=== PATIENT | male | born 1980 | race Caucasian/White ===

== ENCOUNTER 2023-05-20 00:55 | Day surgery (SDC) | payer OTHER, SELFPAY ==
--- NOTE | 2023-05-18 10:28 | SUR.PREOP ---
Patient called regarding upcoming procedure. Reviewed preop instructions, appointment times, and procedure prep.
[2023-05-20 06:33] VITALS: BP 133/95; PULSE 93; RESP 16; TEMP 36.9; O2SAT 97; BMI 30.8
[2023-05-20] MEDS: LACTATED RINGERS 1,000 ML 150 ML IV CONT (06:45)
--- NOTE | 2023-05-20 07:26 | WPDANESEPPF ---
Anes - Initial Pre Proc Eval Procedure: Operation Date: 05/20/23 07:30 Proposed Procedures p Screening Colonoscopy - Jose Vallecillo MD Date/Time: 05/20/23 07:26 Surgeon: Jose Vallecillo MD Pre Op Diagnosis: neoplasm screening Patient Data Age: 43 Gender: M Height: 1.91 m Weight: 112 kg Last Vital Signs Temp 98.5 F 05/20/23 06:33 Pulse 93 05/20/23 06:33 Resp 16 05/20/23 06:33 BP 133/95 H 05/20/23 06:33 Pulse Ox 97 05/20/23 06:33 O2 Del Method Room Air 05/20/23 06:33 Allergies Allergy/AdvReac Type Severity Reaction Status Date / Time No Known Allergies Allergy Verified 05/20/23 06:21 Home Medications Medication Instructions Recorded Confirmed Type omeprazole 20 mg capsule,delayed 20 mg PO BID 04/26/19 05/20/23 History release cholecalciferol (vitamin D3) 50 50 mcg PO DAILY 03/14/22 05/20/23 History mcg (2,000 unit) capsule losartan 50 mg tablet 50 mg PO DAILY #90 tabs 04/13/23 05/20/23 Rx loratadine-pseudoephedrine ER 10 1 tablet PO DAILY #90 tabs 05/19/23 05/20/23 Rx mg-240 mg tablet,extended [id number] (Loratadine-D) Patient hx anesthesia problems: none Family hx anesthesia problems: none Results Review: All pre-operative results and documents have been reviewed as part of the pre-operative evaluation. [facility] Past Medical History Medical History Broken wrist left Headache History of broken finger Pilonidal cyst Surgical History Surgical History History of surgical removal of pilonidal cyst Family History Family History Mother Family history of elevated blood lipids Hypertension Heart disease Other Family history of allergic disorder Social History Social History Smoking packs per day: 1 Smoking cigarettes per day: 20.0 Years smoked: 12.5 Smoking pack-years: 12.50 Smoking status: Former smoker Tobacco type: cigarettes Smoking end date: 06/15/01 Alcohol intake: current Alcohol use details: rare occasional Substance use: never Substance use type: does not use Lack of Transportation: No Lack of Food: Never True Current Housing: I Have Housing Concerned About Future Housing: No Difficulty Paying Gas/Electric Bills: No Difficulty Paying for Meds: No Currently Unemployed: No Education: Bachelor's Degree Difficulty w/ Childcare or Family Care: No Living arrangements: with family Spiritual care concerns: No Anes - Eval Final PreProcedure Day of Procedure 05/20/23 07:26 Patient weight: obese Heart: regular rate and rhythm Lungs: clear to auscultation Airway: Mallampati scale class II Neurological: alert and oriented Last oral intake: >/= 8 hours ASA classification: II Emergent: no Anesthetic plan: proceed Anesthesia type and monitoring: general GIVS and standard monitoring Results Review: All pre-operative results and documents have been reviewed as part of the pre-operative evaluation. Informed Consent: The patient's anesthetic plan and its attendant risks and benefits were discussed with the patient/family/POA. Questions were solicited and answers provided to the satisfaction of the patient/family/POA.
--- NOTE | 2023-05-20 08:02 | PM.HPGS ---
History of Present Illness History of Present Illness Consent: Risks, benefits, and alternatives have been discussed and questions answered. Patient agrees to proceed with procedure. Chief complaint: neoplasm screening Narrative: Aba Barraza is a 43 year old male here for first screening colonoscopy Review of Systems Constitutional: Constitutional: Denies headache(s) and Denies weakness Eyes: Eyes: Denies blurry vision ENT: Reports Normal hearing present, Denies headache(s) and Denies neck pain Cardiovascular: Cardiovascular: Denies chest pain and Denies dyspnea Respiratory: Respiratory: Denies dyspnea Gastrointestinal: Gastrointestinal: Reports no additional gastrointestinal complaints Genitourinary: Genitourinary: Denies dysuria Musculoskeletal: Musculoskeletal: Denies neck pain Integumentary/Breasts: Skin/Breast: Denies dry skin Neurologic: Reports Normal hearing present, Denies headache(s) and Denies weakness Psychiatric: Psychiatric: Denies anxiety Endocrine: Endocrine: Denies change in body appearance Hematologic/Lymphatic: Hematologic/Lymphatic: Denies easy bleeding Allergic/Immunologic: Allergic/Immunologic: Denies urticaria PMF Past Medical History Medical History (Updated 05/20/23 @ 08:24 by Jose Vallecillo MD) Broken wrist left Colon cancer screening Headache History of broken finger Pilonidal cyst Surgical History Surgical History History of surgical removal of pilonidal cyst Family History Family History Mother Family history of elevated blood lipids Hypertension Heart disease Other Family history of allergic disorder Social History Social History Smoking packs per day: 1 Smoking cigarettes per day: 20.0 Years smoked: 12.5 Smoking pack-years: 12.50 Smoking status: Former smoker Tobacco type: cigarettes Smoking end date: 06/15/01 Alcohol intake: current Alcohol use details: rare occasional Substance use: never Substance use type: does not use Lack of Transportation: No Lack of Food: Never True Current Housing: I Have Housing Concerned About Future Housing: No Difficulty Paying Gas/Electric Bills: No Difficulty Paying for Meds: No Currently Unemployed: No Education: Bachelor's Degree Difficulty w/ Childcare or Family Care: No Living arrangements: with family Spiritual care concerns: No Meds Home Medications and Allergies Home Medications Medication Instructions Recorded Confirmed Type omeprazole 20 mg capsule,delayed 20 mg PO BID 04/26/19 05/20/23 History release cholecalciferol (vitamin D3) 50 50 mcg PO DAILY 03/14/22 05/20/23 History mcg (2,000 unit) capsule losartan 50 mg tablet 50 mg PO DAILY #90 tabs 04/13/23 05/20/23 Rx loratadine-pseudoephedrine ER 10 1 tablet PO DAILY #90 tabs 05/19/23 05/20/23 Rx mg-240 mg tablet,extended [id number] (Loratadine-D) Allergies Allergy/AdvReac Type Severity Reaction Status Date / Time No Known Allergies Allergy Verified 05/20/23 06:21 Vital Signs Vital Signs - 24 hr 05/20/23 06:33 Temperature 98.5 F Pulse Rate 93 Respiratory Rate 16 Blood Pressure 133/95 H Pulse Oximetry 97 Oxygen Delivery Room Air Exam Const: General: comfortable and no acute distress HENMT: Face/Nose/Sinus: Normal nares present Eyes: General: appearance normal, both eyes and all related structures Neck: Neck: no JVD Resp: Auscultation: clear to auscultation bilaterally Cardio: Rate: regular rate Rhythm: regular rhythm GI: Inspection: non-distended GI Palp: Yes Soft to palpation Skin: General skin exam: normal color Neuro: General: gait normal Speech: normal speech Extrem: General: normal to inspection Psych: Mental Status: mental status grossly norm
[2023-05-20 08:24] VITALS: BP 108/77; PULSE 82; RESP 17; O2SAT 97
[2023-05-20 08:34] VITALS: BP 131/92; PULSE 82; RESP 16; O2SAT 100
[2023-05-20 08:43] VITALS: BP 153/97; PULSE 90; RESP 24; O2SAT 100
== END 2023-05-20 08:48 | disposition home or self-care (01) ==
PROVIDERS: PCP Family Medicine; Visit Provider Internal Medicine Gastroenterology
PROC: 0DJD8ZZ Inspection of Lower Intestinal Tract, Via Natural or Artificial Opening Endoscopic (ICD-10-PCS; CPT 45378; principal; 2023-05-20 07:30)
DX: Z12.11 Encounter for screening for malignant neoplasm of colon (principal); K63.5 Polyp of colon; K64.8 Other hemorrhoids; Z87.891 Personal history of nicotine dependence; E66.9 Obesity, unspecified; Z68.30 Body mass index [BMI] 30.0-30.9, adult
CPT/HCPCS: 45385; 88305; J2704; J7120